=== PATIENT | male | born 1970 | race African-American/Black ===

== ENCOUNTER → 2016-11-10 | Outpatient (CLI) | payer OTHER | LOC: ULTRA 10:31 | DX: M25.821 Other specified joint disorders, right elbow (principal) ==

== ENCOUNTER → 2019-08-27 | Outpatient (CLI) | payer BC, OTHER | LOC: LAB 11:19 | PROVIDERS: ATTEND Family Medicine | DX: R05 Cough (principal); R06.02 Shortness of breath; Z20.828 Contact with and (suspected) exposure to other viral communicable diseases ==